=== PATIENT | male | born 1975 | race Two or more races ===

== ENCOUNTER 2025-04-19 06:20 | Inpatient (IN) | payer SELFPAY ==
[~2025-04-19] VITALS: Ht 190.5 cm; Wt 66.4 kg
[2025-04-19 07:56] LABS: Hematocrit 49.2 % (41.0-53.0); Hemoglobin 16.7 g/dL (13.5-17.5); Mean Corpuscular Hemoglobin 29.3 pg (28.0-32.0); Mean Corpuscular Volume 86.7 fL (80.0-100.0); Nucleated Red Blood Cells % 0.1 %
--- NOTE | 2025-04-19 07:56 | ED.PDOC ---
Musculoskeletal HPI Comments 49 y/o M, presents to the ED for CC of left-lower extremity pain. Patient states, he has been experiencing pain to his left-popliteal area x1week. Patient reports, he went on a strenuous hike on Wednesday (04/14/25) and symptoms were exacerbated after. Patient relays, that now he has tingling to his left lower extremity with slight discoloration and new onset shortness of breath. Patient denies chest pain, palpitations, swelling, injury, or trauma. No other symptoms or modifying factors are present at this time. Chief Complaint: Lower Extremity Time Seen by MD: 07:10 Reviewed Notes: Nurses Notes, Medications, Allergies Allergies: Coded Allergies: NO KNOWN ALLERGIES (Unverified , 04/19/25) Information Source: Patient Mode of Arrival: Wheelchair Location: Left Extremity Location: Knee Timing: Weeks Prehospital treatment: None Severity: Moderate Able to Move Extremity: No Bear Weight: Limited Pain: Moderate Mechanism: Spontaneous Circumstances: Spontaneous Onset of Symptoms: Spontaneous Symptoms: Swelling, Pain DVT Risk Factors: NONE Associated signs and symptoms: SOB, Leg pain Past Medical History PAST MEDICAL HISTORY: Denies Surgical History: Denies all surgeries Family History Family History: Unknown Social History Smoker: Non-Smoker Alcohol: Occasionally Drugs: Denies Drug Use Lives In: Home Constitutional: denies: chills, diaphoresis, fatigue, fever, malaise, sweats, weakness, others EENTM: denies: blurred vision, double vision, ear bleeding, ear discharge, ear drainage, ear pain, ear ringing, eye pain, eye redness, hearing loss, mouth pain, mouth swelling, nasal discharge, nose bleeding, nose congestion, nose pain, photophobia, tearing, throat pain, throat swelling, voice changes, others Respiratory: denies: cough, hemoptysis, orthopnea, SOB at rest, shortness of breath, SOB with excertion, stridor, wheezing, others Cardiovascular: denies: chest pain, dizzy spells, diaphoresis, Dyspnea on exertion, edema, irregular heart beat, left arm pain, lightheadedness, palpitations, PND, syncope, others Gastrointestinal: denies: abdomen distended, abdominal pain, blood streaked bowels, constipated, diarrhea, dysphagia, difficulty swallowing, hematemesis, melena, nausea, poor appetite, poor fluid intake, rectal bleeding, rectal pain, vomiting, others Genitourinary: denies: burning, dysuria, flank pain, frequency, hematuria, incontinence, penile discharge, penile sore, pain, testicle pain, testicle swelling, urgency, others Neurological: denies: dizziness, fainting, headache, left sided numbness, left sided weakness, numbness, paresthesia, pre-existing deficit, right sided numbness, right sided weakness, seizure, speech problems, tingling, tremors, weakness, others Musculoskeletal: reports: others (left popliteal pain); denies: back pain, gout, joint pain, joint swelling, muscle pain, muscle stiffness, neck pain Integumetry: denies: bruises, change in color, change in hair/nails, dryness, laceration, lesions, lumps, rash, wounds, others Allergic/Immunocompromised: denies: Difficulty Healing, Frequent Infections, Hives, Itching, others Hematologic/Lymphatic: denies: anemia, blood clots, easy bleeding, easy bruising, swollen glands, others Endocrine: denies: excessive hunger, excessive sweating, excessive thirst, excessive urination, flushing, intolerance to cold, intolerance to heat, unexplained weight gain, unexplained weight loss, others Psychiatric: denies: anxiety, bipolar disorder, depression, hopeless, panic disorder, schizophrenia, sleepless, suicidal, others All Other Systems: Reviewed and Negative Physical Exam General Appearance: No Apparent Distress, Normal HEENT: Normal ENT Inspection, Pharynx Normal Neck: Full Range of Motion, Non-Tender, Normal, Normal Inspection Respiratory: Chest Non-Tender, Lungs Clear, No Accessory Muscle Use, No Respiratory Distress, Normal Breath Sounds Cardiovascular: No Edema, No Murmur, No Gallop, Normal Peripheral Pulses, Regular Rate/Rhythm Breast Exam: Deferred Gastrointestinal: No Organomegaly, Non Tender, No Pulsatile Mass, Normal Bowel Sounds, Soft Genitalia: Deferred Pelvic: Deferred Rectal: Deferred Extremities: No calf tenderness, Normal capillary refill, Normal inspection, Normal range of motion, Non-tender, No pedal edema Musculoskeletal : Location: Left Extremity Location: Leg Apperance: Tenderness Neurologic: Alert, mathematical statistician II-XII nml as Tested, No Motor Deficits, Normal Affect, Normal Mood, No Sensory Deficits Cerebellar Function: Normal Reflexes: Normal Skin: Dry, Normal Color, Warm Lymphatic: No Adenopathy Was a procedure done? Was a procedure done?: No Differential Diagnosis EXT Differential Diagnosis: Deep Vein Thrombosis, Strain X-Ray, Labs, Meds, VS Vital Signs Date Time Temp Pulse Resp B/P (MAP) Pulse Ox O2 Delivery O2 Flow Rate FiO2 04/19/25 08:56 84 19 135/82 04/19/25 08:26 98.4 84 19 135/82 (99) 98 98.4 04/19/25 06:25 97.0 92 18 156/93 98 97.0 Lab Test 04/19/25 07:15 Range/Units White Blood Count 10.8 4.4-10.8 10^3/uL Red Blood Count 5.68 4.5-5.90 10^6/uL Hemoglobin 16.7 13.5-17.5 g/dL Hematocrit 49.2 41.0-53.0 % Mean Corpuscular Volume 86.7 80.0-100.0 fL Mean Corpuscular Hemoglobin 29.3 28.0-32.0 pg Mean Corpuscular Hemoglobin Concent 33.8 32.0-36.0 g/dL Red Cell Distribution Width 14.5 H 11.8-14.3 % Platelet Count 245 140-450 10^3/uL Mean Platelet Volume 7.6 6.9-10.8 fL Neutrophils (%) (Auto) 76.8 37.0-80.0 % Lymphocytes (%) (Auto) 14.2 10.0-50.0 % Monocytes (%) (Auto) 7.9 0.0-12.0 % Eosinophils (%) (Auto) 0.9 0.0-7.0 % Basophils (%) (Auto) 0.2 0.0-2.0 % Neutrophils # (Auto) 8.3 1.6-8.6 10 ^3/uL Lymphocytes # (Auto) 1.5 0.4-5.4 10 ^3/uL Monocytes # (Auto) 0.8 0-1.3 10 ^3/uL Eosinophils # (Auto) 0.1 0-0.8 10 ^3/uL Basophils # (Auto) 0 0-0.2 10 ^3/uL Nucleated Red Blood Cells 0.1 % Prothrombin Time 10.9 9.3-11.8 sec Prothrombin Time INR 1.03 0.9-1.15 Activated Partial Thromboplast Time 31.3 24.5-34.5 SEC D-Dimer, Quantitative 0.29 0.0-0.49 mg/L FEU Sodium Level 139 136-145 mmol/L Potassium Level 4.3 3.5-5.1 mmol/L Chloride Level 102 98-107 mmol/L Carbon Dioxide Level 26 20-31 mmol/L Anion Gap 11 5-15 Blood Urea Nitrogen 13 9-23 mg/dL Creatinine 1.12 0.700-1.30 mg/dL Glomerular Filtration Rate Calc 81 >90 mL/min BUN/Creatinine Ratio 11.6 10.0-20.0 Serum Glucose 105 74-106 mg/dL Calcium Level 9.3 8.7-10.4 mg/dL Troponin I High Sensitivity 6 </=54 ng/L Current Medications Medications (Trade) Dose Ordered Sig/Scotty Route Start Time Stop Time Status Last Admin Sodium Chloride 1,000 ml @ 1,000 mls/hr Q1H ONCE IV 04/19/25 07:30 04/19/25 08:29 DC 04/19/25 08:54 Morphine Sulfate 4 mg ONCE ONCE IV 04/19/25 07:30 04/19/25 07:39 DC 04/19/25 08:56 Ondansetron HCl (Zofran) 4 mg ONCE ONCE IV 04/19/25 07:30 04/19/25 07:39 DC 04/19/25 08:56 [place] [address] Ph: [phone] DIAGNOSTIC IMAGING Diagnostic Imaging Report : [id number] Signed PATIENT: CARRIE GROSS ACCT: [id number] UNIT: [id number] : 1975 LOC: ER ROOM / BED: / AGE / SEX: 49 / M ADM STATUS: REG ER SERVICE 0 ORDERING PHYSICIAN: HARRY TUBBS MD PROCEDURE(s): LKNE3 - L KNEE 3V XRAY REASON: left leg pain ORDER NUMBER(s): [id number], ACCESSION NUMBER(s): [id number] CLINICAL INDICATION: left leg pain TECHNIQUE: 3 radiographic views of the left knee were obtained. Comparison: None FINDINGS/IMPRESSION: There is no evidence of acute fracture or dislocation. Chondrocalcinosis. Mild tricompartmental knee joint osteoarthrosis. Small left knee joint effusion. There is no radiopaque foreign body. ATED BY: MAK AN MD DICTATED DATE/TIME: 04/19/25810 SIGNED BY: MAK AN MD SIGNED DATE/TIME: 04/19/25810 CC: [place] [id number] Ph: [phone] DIAGNOSTIC IMAGING Diagnostic Imaging Report : [id number] Signed PATIENT: CARRIE GROSS ACCT: [id number] UNIT: [id number] : 1975 LOC: ER ROOM / BED: / AGE / SEX: 49 / M ADM STATUS: REG ER SERVICE 0 ORDERING PHYSICIAN: HARRY TUBBS MD PROCEDURE(s): CXRP - CHEST PORTABLE REASON: left leg pain ORDER NUMBER(s): [id number], ACCESSION NUMBER(s): [id number] EXAM: XY CHEST PORTABLE Indication: pain Technique: Single frontal view of the chest was obtained Comparison: None FINDINGS: Lines and Tubes: None Lungs: No focal consolidation. Pleura: No effusion. No pneumothorax. Cardiomediastinal contours: Unremarkable Bones: No acute osseous abnormality. IMPRESSION: No acute cardiopulmonary disease. ATED BY: MAK AN MD DICTATED DATE/TIME: 04/19/25818 SIGNED BY: MAK AN MD SIGNED DATE/TIME: 04/19/25818 CC: Time of 1ST Reevaluation: 07:40 Reevaluation 1ST: Unchanged Patient Education/Counseling: Diagnosis, Treatment Family Education/Counseling: Diagnosis, Treatment Departure 1 Departure Time of Disposition: 10:03 (Patient with a acute DVT and intractable pain. We will admit patient for further workup and expert consultation) Impression: Primary Impression: Left leg DVT Qualified Codes: I82.452 - Acute embolism and thrombosis of left peroneal vein Disposition: ADMITTED INPATIENT Admit to: Med Surg Condition: Serious Critical Care Note Critical Care Time?: Yes Critical care comment: Concern for possible PE Authorized and Performed by: Harry Tubbs MD Total critical care time: Approximately 38 minutes Due to a high probability of clinically significant, life threatening deterioration, the patient required my highest level of preparedness to intervene emergently and I personally spent this critical care time directly and personally managing the patient. This critical care time included obtaining a history; examining the patient; pulse oximetry; ordering and review of studies; arranging urgent treatment with development of a management plan; evaluation of patient's response to treatment; frequent reassessment; and, discussions with other providers. This critical care time was performed to assess and manage the high probability of imminent, life-threatening deterioration that could result in multi-organ failure. It was exclusive of separately billable procedures and treating other patients and teaching time. Please see my other sections and the rest of the note for further information on patient assessment and treatment. Stability Stability form required: No Heart Score Heart Score: Heart Score Response (Comments) Value History N/A 0 EKG N/A 0 Age N/A 0 Risk Factors N/A 0 Troponin N/A 0 Total 0 I personally scribed for HARRY TUBBS MD ([email or web address]) on 04/19/25 at 07:55. Electronically submitted by Anjali Hong ([email or web address]). I personally scribed for HARRY TUBBS MD ([email or web address]) on 04/19/25 at 08:19. Electronically submitted by Anjali Hong ([email or web address]). I personally scribed for HARRY TUBBS MD ([email or web address]) on 04/19/25 at 08:26. Electronically submitted by Anjali Hong ([email or web address]). I personally scribed for HARRY TUBBS MD ([email or web address]) on 04/19/25 at 08:27. Electronically submitted by Anjali Hong ([email or web address]). I personally scribed for HARRY TUBBS MD ([email or web address]) on 04/19/25 at 08:29. Electronically submitted by Anjali Hong ([email or web address]). HARRY TUBBS MD Apr 19, 2025 07:55
[2025-04-19 07:57] LABS: Chloride 102 mmol/L (98-107); Potassium 4.3 mmol/L (3.5-5.1); Sodium 139 mmol/L (136-145)
[2025-04-19 07:58] LABS: Anion Gap 11 (5-15); Calcium 9.3 mg/dL (8.7-10.4); Carbon Dioxide 26 mmol/L (20-31)
[2025-04-19 08:03] LABS: BUN/Creatinine Ratio 11.6 (10.0-20.0); Blood Urea Nitrogen 13 mg/dL (9-23); Glucose 105 mg/dL (74-106)
--- NOTE | 2025-04-19 08:14 | DVH ---
CLINICAL INDICATION: left leg pain TECHNIQUE: 3 radiographic views of the left knee were obtained. Comparison: None FINDINGS/IMPRESSION: There is no evidence of acute fracture or dislocation. Chondrocalcinosis. Mild tricompartmental knee joint osteoarthrosis. Small left knee joint effusion. There is no radiopaque foreign body.
--- NOTE | 2025-04-19 08:21 | DVH ---
EXAM: XY CHEST PORTABLE Indication: pain Technique: Single frontal view of the chest was obtained Comparison: None FINDINGS: Lines and Tubes: None Lungs: No focal consolidation. Pleura: No effusion. No pneumothorax. Cardiomediastinal contours: Unremarkable Bones: No acute osseous abnormality. IMPRESSION: No acute cardiopulmonary disease.
--- NOTE | 2025-04-19 08:23 | DVH ---
Left lower extremity venous duplex Clinical History: Left leg pain Comparison: None Technique: Duplex Doppler evaluation of the deep venous system of the left lower extremity from the common femor al vein to the popliteal vein including color Doppler and spectral/pulsed waveform analysis was perfo rmed. Findings: The common femoral vein demonstrates appropriate compressibility and waveform variability. Intraluminal thrombus in the lesser saphenous vein and peroneal vein. The femoral vein demonstrates appropriate compressibility and waveform variability. Distal superficia l femoral vein appears small in size. The deep femoral vein demonstrates appropriate compressibility and waveform variability. The popliteal vein demonstrates appropriate compressibility and waveform variability. There is normal compressibility at the tibioperoneal trunk. Small knee joint effusion. Impression: No left femoropopliteal venous thrombosis. Intraluminal thrombus in the lesser saphenous vein and peroneal vein. Small knee joint effusion. This measures approximately 5.3 x 1.5 x 4.8 cm.
[2025-04-19] MEDS: SODIUM CHLORIDE 0.9% 1,000 ML IV ONE (08:54)
[2025-04-19] MEDS: MORPHINE SULFATE 4 MG/ML SYR/VIAL IV ONE (08:56)
[2025-04-19] MEDS: ONDANSETRON HCL 4 MG/2 ML VIAL IV ONE (08:56)
[2025-04-19] MEDS: IOHEXOL 350 MG/ML 100ML IJ ONE (09:01)
[2025-04-19 09:27] LABS: INR 1.03 (0.9-1.15); Partial Thromboplastin Time 31.3 SEC (24.5-34.5); Prothrombin Time 10.9 sec (9.3-11.8)
--- NOTE | 2025-04-19 09:38 | DVH ---
CTA Chest with intravenous contrast INDICATION: dvt with chest pain and sob COMPARISON: None TECHNIQUE: Multidetector spiral CTA of the chest was performed of the chest with intravenous contrast . PULMONARY ANGIOGRAPHY PROTOCOL was utilized using a bolus-tracking technique centered on the main p ulmonary artery. Axial, coronal and sagittal multiplanar and MIP reformats were performed. Radiation dose : 1. Chest: CTDI volume is 18.04 mGy. Dose-length product is 673.47 mGy*cm The dose indicators for CT are the volume computed tomography (CT) dose index (CTDIvol) and the dose length product (DLP), and are measured in units of mGy and mGy-cm, respectively. These indicators are not patient dose, but values generated from the CT scanner acquisition factors. The report includes radiation exposure data for exposures received during this examination. Findings: Pulmonary artery: No pulmonary embolism Lower neck: Normal thyroid. Lungs: No focal consolidation, pleural effusion or pneumothorax. Heart/Vascular Structures: Normal heart size. No pericardial effusion. Lymph Nodes: No adenopathy Pleura: No pleural effusion or significant pneumothorax. Musculoskeletal: No acute osseous abnormality. Soft tissues: Normal. Upper abdomen: Limited portions of the upper abdomen are unremarkable. IMPRESSION: No pulmonary embolism or other significant abnormality.
[2025-04-19 10:30] VITALS: PULSE 71; RESP 18; O2SAT 97
[2025-04-19] MEDS: HEPARIN SODIUM (PORCINE) 5000 UNITS/ML 1ML VIAL IV ONE (10:48)
[2025-04-19] MEDS: HEPARIN DRIP/D5W 100UNITS/ML 250 ML IV SCH ×2 (10:48→19:06)
[2025-04-19] MEDS ORDERED: ONDANSETRON HCL 4 MG/2 ML VIAL IV PRN (12:30)
[2025-04-19] MEDS ORDERED: NITROGLYCERIN 0.4 MG SL TAB SL PRN (12:30)
--- NOTE | 2025-04-19 12:42 | DVHHP2 ---
History of Present Illness Reason for Visit: Left leg pain History of Present Illness Rajni Addison is a 49-year-old male with no past medical history who presents to the ED with left lower extremity pain x1 week. Patient reports that on Wednesday he had gone on a strenuous hike about 3-1/2 miles uphill and his symptoms became worse. He also reports tingling to his left lower extremity and slight discoloration with shortness of breath when he first came in. Upon examination no discoloration noted. Patient reports that he is on TRT and goes to the clinic every 3 months for blood tests. Patient also has a left scar around his knee area states that he accidentally was lying on a knife. Patient also repor ts that he is active. 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 Patient's Becca is on the phone and updated with plan of care. Patient denies any recent trauma or injury, recent sick contacts, recent ingestion of spoiled food, recent travels, chest pain, fever, chills, lightheadedness, weakness, dizziness, abdominal pain nausea, vomiting, diarrhea, or urinary symptoms. Past Surgical History: None Family History: None Smoke: No ALCOHOL: none Drugs: None Lives: with Family Domestic Violence: Neg Review of Systems Musculoskeletal: leg pain Allergies: Coded Allergies: NO KNOWN ALLERGIES (Unverified , 04/19/25) Medications Current Medications Medications Dose Ordered Sig/Scotty Route Start Time Stop Time Status Last Admin Dose Admin Heparin Sodium/ Dextrose 250 ml @ 18 mls/hr [id number] IV 04/19/25 10:12 04/19/25 10:48 18 MLS/HR Exam Vital Signs Vital Signs Date Time Temp Pulse Resp B/P (MAP) Pulse Ox O2 Delivery O2 Flow Rate FiO2 04/19/25 10:30 71 18 97 Room Air* 0 21 04/19/25 10:30 140/87 (104) 04/19/25 08:26 98.4 98.4 General Appearance: Alert, Oriented X3, Cooperative, No acute distress HEENT: Atraumatic, PERRLA, EOMI, Mucous membr. moist/pink Respiratory: Clear to auscultation, Normal air movement Cardiovascular: Regular rate, Normal S1, Normal S2, No murmurs Abdominal: Normal bowel sounds, Soft Extremities: No clubbing, No cyanosis, No edema Skin: No significant lesion Neuro: Normal speech, Strength at 5/5 X4 ext, Normal tone, Sensation intact Psych/Mental Status: Mental status NL, Mood NL Labs/Xrays Labs Test 04/19/25 07:15 Range/Units White Blood Count 10.8 4.4-10.8 10^3/uL Red Blood Count 5.68 4.5-5.90 10^6/uL Hemoglobin 16.7 13.5-17.5 g/dL Hematocrit 49.2 41.0-53.0 % Mean Corpuscular Volume 86.7 80.0-100.0 fL Mean Corpuscular Hemoglobin 29.3 28.0-32.0 pg Mean Corpuscular Hemoglobin Concent 33.8 32.0-36.0 g/dL Red Cell Distribution Width 14.5 H 11.8-14.3 % Platelet Count 245 140-450 10^3/uL Mean Platelet Volume 7.6 6.9-10.8 fL Neutrophils (%) (Auto) 76.8 37.0-80.0 % Lymphocytes (%) (Auto) 14.2 10.0-50.0 % Monocytes (%) (Auto) 7.9 0.0-12.0 % Eosinophils (%) (Auto) 0.9 0.0-7.0 % Basophils (%) (Auto) 0.2 0.0-2.0 % Neutrophils # (Auto) 8.3 1.6-8.6 10 ^3/uL Lymphocytes # (Auto) 1.5 0.4-5.4 10 ^3/uL Monocytes # (Auto) 0.8 0-1.3 10 ^3/uL Eosinophils # (Auto) 0.1 0-0.8 10 ^3/uL Basophils # (Auto) 0 0-0.2 10 ^3/uL Nucleated Red Blood Cells 0.1 % Prothrombin Time 10.9 9.3-11.8 sec Prothrombin Time INR 1.03 0.9-1.15 Activated Partial Thromboplast Time 31.3 24.5-34.5 SEC D-Dimer, Quantitative 0.29 0.0-0.49 mg/L FEU Sodium Level 139 136-145 mmol/L Potassium Level 4.3 3.5-5.1 mmol/L Chloride Level 102 98-107 mmol/L Carbon Dioxide Level 26 20-31 mmol/L Anion Gap 11 5-15 Blood Urea Nitrogen 13 9-23 mg/dL Creatinine 1.12 0.700-1.30 mg/dL Glomerular Filtration Rate Calc 81 >90 mL/min BUN/Creatinine Ratio 11.6 10.0-20.0 Serum Glucose 105 74-106 mg/dL Calcium Level 9.3 8.7-10.4 mg/dL Troponin I High Sensitivity 6 </=54 ng/L CTA Chest with intravenous contrast INDICATION: dvt with chest pain and sob COMPARISON: None TECHNIQUE: Multidetector spiral CTA of the chest was performed of the chest with intravenous contrast. PULMONARY ANGIOGRAPHY PROTOCOL was utilized using a bolus- tracking technique centered on the main pulmonary artery. Axial, coronal and sagittal multiplanar and MIP reformats were performed. Radiation dose : 1. Chest: CTDI volume is 18.04 mGy. Dose-length product is 673.47 mGy*cm The dose indicators for CT are the volume computed tomography (CT) dose index (CTDIvol) and the dose length product (DLP), and are measured in units of mGy and mGy-cm, respectively. These indicators are not patient dose, but values generated from the CT scanner acquisition factors. The report includes radiation exposure data for exposures received during this examination. Findings: Pulmonary artery: No pulmonary embolism Lower neck: Normal thyroid. Lungs: No focal consolidation, pleural effusion or pneumothorax. Heart/Vascular Structures: Normal heart size. No pericardial effusion. Lymph Nodes: No adenopathy Pleura: No pleural effusion or significant pneumothorax. Musculoskeletal: No acute osseous abnormality. Soft tissues: Normal. Upper abdomen: Limited portions of the upper abdomen are unremarkable. IMPRESSION: No pulmonary embolism or other significant abnormality. CLINICAL INDICATION: left leg pain TECHNIQUE: 3 radiographic views of the left knee were obtained. Comparison: None FINDINGS/IMPRESSION: There is no evidence of acute fracture or dislocation. Chondrocalcinosis. Mild tricompartmental knee joint osteoarthrosis. Small left knee joint effusion. There is no radiopaque foreign body. Left lower extremity venous duplex Clinical History: Left leg pain Comparison: None Technique: Duplex Doppler evaluation of the deep venous system of the left lower extremity from the common femoral vein to the popliteal vein including color Doppler and spectral/pulsed waveform analysis was performed. Findings: The common femoral vein demonstrates appropriate compressibility and waveform variability. Intraluminal thrombus in the lesser saphenous vein and peroneal vein. The femoral vein demonstrates appropriate compressibility and waveform variability. Distal superficial femoral vein appears small in size. The deep femoral vein demonstrates appropriate compressibility and waveform variability. The popliteal vein demonstrates appropriate compressibility and waveform variability. There is normal compressibility at the tibioperoneal trunk. Small knee joint effusion. Impression: No left femoropopliteal venous thrombosis. Intraluminal thrombus in the lesser saphenous vein and peroneal vein. Small knee joint effusion. This measures approximately 5.3 x 1.5 x 4.8 cm. EXAM: XY CHEST PORTABLE Indication: pain Technique: Single frontal view of the chest was obtained Comparison: None FINDINGS: Lines and Tubes: None Lungs: No focal consolidation. Pleura: No effusion. No pneumothorax. Cardiomediastinal contours: Unremarkable Bones: No acute osseous abnormality. IMPRESSION: No acute cardiopulmonary disease. SEPSIS Sepsis Screen Date sepsis recognized/suspect: Apr 19, 2025 Time Sepsis recognized/suspect: 629 Recent Procedure: No On Antibiotic Therapy: No Respiratory Rate >20: No Heart Rate >90: Yes Temp<36 C (96.8 F) or >38.3 C: No SBP <90 or MAP <65 mmHG: No New Acute Mental Status Change: No Is the patient on CPAP, BIPAP,: No Physician Orders L Knee 3v Xray (04/19/25 07:21) Chest Portable (04/19/25 07:21) Lt Lower Dvt (04/19/25 07:21) Electrocardigram (04/19/25 07:21) Platelet Monitoring (04/19/25 08:47) Vte Protocol Initiated (04/19/25 08:47) Heparin Per Standardized Proce (04/19/25 08:47) Discontinue All Im Injections (04/19/25 08:47) Heparin Drip/D5w 100units/Ml (04/19/25 10:12) Ct Angio Chest Contrast (04/19/25 08:47) * Radiologist Consult (04/19/25 10:04) PTPTT (04/19/25 17:00) Vital Signs Date Time Temp Pulse Resp B/P (MAP) Pulse Ox O2 Delivery O2 Flow Rate FiO2 04/19/25 10:30 71 18 97 Room Air* 0 21 04/19/25 10:30 71 18 140/87 (104) 97 04/19/25 08:56 84 19 135/82 04/19/25 08:26 98.4 84 19 135/82 (99) 98 98.4 04/19/25 06:25 97.0 92 18 156/93 98 97.0 Laboratory Tests Test 04/19/25 07:15 White Blood Count 10.8 10^3/uL (4.4-10.8) Medications Medications Dose Ordered Sig/Scotty Route Start Time Stop Time Status Last Admin Dose Admin Heparin Sodium (Porcine) 5,000 units ONCE ONCE IV 04/19/25 09:00 04/19/25 10:11 DC 04/19/25 10:48 5,000 UNITS Heparin Sodium/ Dextrose 250 ml @ 18 mls/hr [id number] IV 04/19/25 10:12 04/19/25 10:48 18 MLS/HR Morphine Sulfate 4 mg ONCE ONCE IV 04/19/25 07:30 04/19/25 07:39 DC 04/19/25 08:56 4 MG Ondansetron HCl 4 mg ONCE ONCE IV 04/19/25 07:30 04/19/25 07:39 DC 04/19/25 08:56 4 MG Sodium Chloride 1,000 ml @ 1,000 mls/hr Q1H ONCE IV 04/19/25 07:30 04/19/25 08:29 DC 04/19/25 08:54 1,000 MLS/HR Assessment/Plan Assessment/Plan Assessment Intractable left lower extremity pain likely due to DVT, intraluminal thrombus in the lesser saphenous vein and peroneal vein Chondrocalcinosis Mild tricompartmental knee joint osteoarthrosis Small knee joint effusion Plan Admit to tele Heparin drip Antiemetics Pain management NS 1 L given ED CTA chest noted D-dimer PT/PTT EKG Ultrasound lower extremity Chest x-ray Left knee x-ray Diet No home medications reported DVT prophylaxis - patient on heparin drip PUD prophylaxis - PPIs Discussed plan of care with patient and [place] [id number] Preventive counseling healthy eating habits, physical activity, and regular checkups Plan discussed with: Patient Date of Service: Apr 19, 2025 Billing Provider: KRAIG VARGAS [employer] Common Visit Codes: 98842-ZNIOBTV INP/OBS CARE (HIGH) Secondary Visit Codes: 66867-[id number] COUNSELING IND KRAIG VARGAS [facility] Apr 19, 2025 12:42
[2025-04-19] MEDS ORDERED: MORPHINE SULFATE 4 MG/ML SYR/VIAL IV PRN ×2 (13:30)
[2025-04-19] MEDS: PANTOPRAZOLE 40 MG/10 ML VIAL INJ IV SCH (13:33)
[2025-04-19] MEDS: HYDROcodone-ACET 5/325MG TAB PO PRN (13:59)
[2025-04-19 17:14] VITALS: BP 137/76; PULSE 84; RESP 18; TEMP 98.1; O2SAT 96
[2025-04-19 17:38] LABS: INR 1.13 (0.9-1.15); Prothrombin Time 11.8 sec (9.3-11.8)
[2025-04-19 17:47] LABS: Partial Thromboplastin Time 105.5 SEC (24.5-34.5)
--- NOTE | 2025-04-19 18:16 | CONS ---
Pharmacy Clinical Information: HOLD HEPARIN DRIPS FOR 1HR. THEN DECREASE HEPARIN DRIP RATE TO 1500 UNITS/HR PER APTT OF 105.5 NEXT APTT DRAW SCHEDULED FOR 04/20 @0100PER RX PROTOCOL DANIA PAYTON CONFIRMED AND READ BACK Natalia Huynh PHARMACIST Apr 19, 2025 18:16
[2025-04-19 20:00] VITALS: PULSE 86; RESP 18
[2025-04-19 20:57] VITALS: BP 118/83; PULSE 80; RESP 16; TEMP 98.7; O2SAT 97
[2025-04-20] VITALS (8 sets, daily range): BP systolic 125–148; BP diastolic 75–91; PULSE 70–91; RESP 16–18; TEMP 98.3–98.6; O2SAT 94–100
[2025-04-20 01:26] LABS: INR 1.08 (0.9-1.15); Partial Thromboplastin Time 53.7 SEC (24.5-34.5); Prothrombin Time 11.4 sec (9.3-11.8)
[2025-04-20 07:37] LABS: Hematocrit 45.9 % (41.0-53.0); Hemoglobin 15.9 g/dL (13.5-17.5); Mean Corpuscular Hemoglobin 29.9 pg (28.0-32.0); Mean Corpuscular Volume 86.2 fL (80.0-100.0); Nucleated Red Blood Cells % 0.1 %
[2025-04-20 07:52] LABS: INR 1.12 (0.9-1.15); Partial Thromboplastin Time 58.7 SEC (24.5-34.5); Prothrombin Time 11.7 sec (9.3-11.8)
[2025-04-20 07:54] LABS: Alanine Aminotransferase 23 U/L (7-40); Albumin 4.3 g/dL (3.2-4.8); Alkaline Phosphatase 62 U/L (46-116); Anion Gap 10 (5-15); BUN/Creatinine Ratio 10.4 (10.0-20.0); Bilirubin, Total 1.9 mg/dL (0.2-1.0); Blood Urea Nitrogen 10 mg/dL (9-23); Calcium 9.3 mg/dL (8.7-10.4); Carbon Dioxide 26 mmol/L (20-31); Chloride 103 mmol/L (98-107); Glucose 107 mg/dL (74-106); Potassium 4.1 mmol/L (3.5-5.1); Sodium 139 mmol/L (136-145); Total Protein 7.4 g/dL (5.7-8.2)
[2025-04-20] MEDS: ACETAMINOPHEN 325 MG TAB PO PRN (08:24)
--- NOTE | 2025-04-20 12:15 | DVHPN2 ---
Reviewed: Care Plan, H&P, Labs, Medications, Previous Orders, Radiology Changes from previous H/P or p: No Changes Musculoskeletal: leg pain Objective Vitals Vital Signs Date Time Temp Pulse Resp B/P (MAP) Pulse Ox O2 Delivery O2 Flow Rate FiO2 04/20/25 09:30 97.8 04/20/25 08:00 88 04/20/25 08:00 18 95 Room Air* 0 21 04/20/25 05:00 140/91 (107) Intake/Output Intake and Output 04/20/25 07:00 Intake Total 800 ml Output Total 1210 ml Balance -410 ml Intake Oral 800 ml Output Urine Total 1210 ml Medications Current Medications Medications Dose Ordered Sig/Scotty Route Start Time Stop Time Status Last Admin Dose Admin Acetaminophen/ Hydrocodone Bitart 1 tab Q4HP PRN PO 04/19/25 12:30 04/20/25 10:46 1 TAB Ondansetron HCl 4 mg Q4HP PRN IV 04/19/25 12:30 Acetaminophen 650 mg Q6HP PRN PO 04/19/25 12:30 04/20/25 08:24 650 MG Morphine Sulfate 2 mg Q4HPRN PRN IV 04/19/25 13:30 Nitroglycerin 0.4 mg Q5MINP PRN SL 04/19/25 12:30 Morphine Sulfate 2 mg Q30M PRN IV 04/19/25 13:30 Pantoprazole Sodium 40 mg DAILY IV 04/19/25 12:45 04/20/25 10:45 40 MG Heparin Sodium/ Dextrose 250 ml @ 15 mls/hr [id number] IV 04/19/25 19:00 04/20/25 04:17 15 MLS/HR Laboratory Results Laboratory Tests 04/20/25 07:00 Chemistry Test 04/20/25 07:00 Albumin 4.3 g/dL (3.2-4.8) Calcium Level 9.3 mg/dL (8.7-10.4) Total Protein 7.4 g/dL (5.7-8.2) Coagulation Test 04/19/25 16:55 04/20/25 00:57 04/20/25 07:00 Prothrombin Time 11.8 sec (9.3-11.8) 11.4 sec (9.3-11.8) 11.7 sec (9.3-11.8) Prothrombin Time INR 1.13 (0.9-1.15) 1.08 (0.9-1.15) 1.12 (0.9-1.15) Activated Partial Thromboplast Time 105.5 SEC (24.5-34.5) *H 53.7 SEC (24.5-34.5) H 58.7 SEC (24.5-34.5) H LFT Test 04/20/25 07:00 Alanine Aminotransferase (ALT) 23 U/L (7-40) Alkaline Phosphatase 62 U/L (46-116) Aspartate Amino Transferase (AST) 20 U/L (13-40) Total Bilirubin 1.9 mg/dL (0.2-1.0) H Labs and/or images reviewed: Labs reviewed by me, Image(s) reviewed by me Assessment/Plan Assessment/Plan Intractable left lower extremity pain likely due to DVT, intraluminal thrombus in the lesser saphenous vein and peroneal vein heparin drip per protocol cardiology consult for Dr.M Kramer Chondrocalcinosis Mild tricompartmental knee joint osteoarthrosis Small knee joint effusion at bedside Plan discussed with: Patient Date of Service: Apr 20, 2025 Billing Provider: MARKO TRUJILLO MD Common Visit Codes: [id number] INP/OBS CARE(HIGH) MARKO TRUJILLO MD Apr 20, 2025 12:15
[2025-04-20 13:48] LABS: INR 1.11 (0.9-1.15); Partial Thromboplastin Time 64.2 SEC (24.5-34.5); Prothrombin Time 11.6 sec (9.3-11.8)
--- NOTE | 2025-04-20 15:36 | DVHINCON2 ---
Date Seen: Apr 20, 2025 Referring Physician MD Garcia Reason for Consultation Severe left leg pain with DVT History of Present Illness This is a 49-year-old male patient who presents to emergency room with chief complaint of left lower extremity pain. The patient was found to have a intral uminal thrombus in the lesser saphenous vein and peroneal vein on the left lower extremity. Cardiology has been consulted at this time for further evaluation. No twelve lead electrocardiogram found in patient's hard chart or in cardio server developer. The patient is in normal sinus rhythm on educational/development assistant without any events noted. The patient denies all cardiac symptoms including chest pain, shortness of breath, palpitations, or dizziness. Pulmonary embolism was ruled out by chest CT. Initial troponin level was negative. Significant past medical history includes mitral valve prolapse, and testosterone replacement therapy. Past Medical History Past medical history reviewed. No other significant than mentioned above. Past Surgical History Denies any previous surgery Family History: Patient reports no known family medical history. Family History Family history reviewed. Social History Denies the use of tobacco, alcohol or illicit drugs. Allergies: Coded Allergies: NO KNOWN ALLERGIES (Unverified , 04/19/25) Home Meds No Active Prescriptions or Reported Meds Home Meds Patient takes testosterone replacement therapy Current Medications Current Medications Medications (Trade) Dose Ordered Sig/Scotty Route PRN Reason Start Time Stop Time Status Last Admin Heparin Sodium/ Dextrose 250 ml @ 15 mls/hr [id number] IV 04/19/25 19:00 04/20/25 04:17 Review of Systems Constitutional: No symptom reported Ears, Nose, & Throat: No symptom reported Eyes: No symptom reported Neurological: No symptoms reported Pulmonary/Respiratory: No symptoms reported Cardiovascular: No symptom reported Gastrointestinal: No symptom reported Genitourinary: No symptom reported Musculoskeletal: Left lower extremity pain Skin: No symptom reported Psychiatric: No symptom reported Endocrine: No symptom reported Hematologic/Lymphatic: No symptom reported Vital Signs Vital Signs Date Time Temp Pulse Resp B/P (MAP) Pulse Ox O2 Delivery O2 Flow Rate FiO2 04/20/25 13:00 98.4 70 18 137/75 (95) 100 98.4 04/20/25 08:00 Room Air* 0 21 Physical Exam General Appearance: Cooperative. Well-developed. Well-nourished. No acute distress. Pulmonary/Respiratory: Clear, bilateral breaths sounds. Cardiovascular/Chest: Regular rate and rhythm. Peripheral Pulses: 2+ Radial (R). 2+ Radial (L). 2+ Pedal (R). 2+ Pedal (L) Abdominal Exam: Normal bowel sounds. Ankle Exam: Negative ankle edema Lower extremities: Negative lower extremity edema Neuro/Mental Status: A/OX4, coherent. Thoughts/Psych: Normal thought pattern. Appropriate mood and affect. Good judgment and insight. Appearance: No acute distress. Skin Exam: Normal inspection. Normal color. Warm and dry. Labs/Diagnostic Data Labs Test 04/20/25 13:15 04/20/25 07:00 04/19/25 13:03 04/19/25 07:15 Range/Units Prothrombin Time 11.6 9.3-11.8 sec Prothrombin Time INR 1.11 0.9-1.15 Activated Partial Thromboplast Time 64.2 H 24.5-34.5 SEC White Blood Count 9.2 4.4-10.8 10^3/uL Red Blood Count 5.33 4.5-5.90 10^6/uL Hemoglobin 15.9 13.5-17.5 g/dL Hematocrit 45.9 41.0-53.0 % Mean Corpuscular Volume 86.2 80.0-100.0 fL Mean Corpuscular Hemoglobin 29.9 28.0-32.0 pg Mean Corpuscular Hemoglobin Concent 34.7 32.0-36.0 g/dL Red Cell Distribution Width 13.9 11.8-14.3 % Platelet Count 200 140-450 10^3/uL Mean Platelet Volume 7.5 6.9-10.8 fL Neutrophils (%) (Auto) 74.8 37.0-80.0 % Lymphocytes (%) (Auto) 15.4 10.0-50.0 % Monocytes (%) (Auto) 8.7 0.0-12.0 % Eosinophils (%) (Auto) 0.7 0.0-7.0 % Basophils (%) (Auto) 0.4 0.0-2.0 % Neutrophils # (Auto) 6.9 1.6-8.6 10 ^3/uL Lymphocytes # (Auto) 1.4 0.4-5.4 10 ^3/uL Monocytes # (Auto) 0.8 0-1.3 10 ^3/uL Eosinophils # (Auto) 0.1 0-0.8 10 ^3/uL Basophils # (Auto) 0 0-0.2 10 ^3/uL Nucleated Red Blood Cells 0.1 % Sodium Level 139 136-145 mmol/L Potassium Level 4.1 3.5-5.1 mmol/L Chloride Level 103 98-107 mmol/L Carbon Dioxide Level 26 20-31 mmol/L Anion Gap 10 5-15 Blood Urea Nitrogen 10 9-23 mg/dL Creatinine 0.96 0.700-1.30 mg/dL Glomerular Filtration Rate Calc 97 >90 mL/min BUN/Creatinine Ratio 10.4 10.0-20.0 Serum Glucose 107 H 74-106 mg/dL Calcium Level 9.3 8.7-10.4 mg/dL Total Bilirubin 1.9 H 0.2-1.0 mg/dL Aspartate Amino Transferase (AST) 20 13-40 U/L Alanine Aminotransferase (ALT) 23 7-40 U/L Alkaline Phosphatase 62 46-116 U/L Total Protein 7.4 5.7-8.2 g/dL Albumin 4.3 3.2-4.8 g/dL Creatine Kinase 151 46-171 U/L D-Dimer, Quantitative 0.29 0.0-0.49 mg/L FEU Troponin I High Sensitivity 6 </=54 ng/L Assessment Intraluminal thrombus in lesser saphenous and peroneal veins Rule out structural heart disease History of mitral valve prolapse Chondrocalcinosis History of testosterone replacement therapy Plan/Recommendation We will continue following plan/recommendations (Dr. Kramer): Case discussed with . Lower extremity venous study reviewed by MD. Given location, there is no indication for mechanical thrombectomy at this time. The patient may continue on heparin drip while inpatient. The patient will need to be switch to DOAC therapy with Eliquis prior to discharge. Pending inpatient transthoracic echocardiogram to evaluate cardiac function. Thank you for allowing us to care for this patient. Please call with any questions or concerns. Critical care time spent: 44 minutes This medical document was created using an electronic medical record system with voice recognition software and computerized dictation system. Although this document has been carefully reviewed, there might still be some phonetic and typographical errors. Occasional wrong-word or ``sound-alike substitutions may have occurred due to the inherent limitations of voice recognition software. These areas are purely typographical due to imperfections of the software programs and do not reflect any compromise in the patient's medical care. Please read the chart carefully and recognize, using context, where these substitutions have occurred. Plan discussed with: Patient NYHA Physical activity limitations: NA Date of Service: Apr 20, 2025 Billing Provider: TALA ISRAEL Cardiology Common Codes: [id number] INP/OBS CARE (High) Cardiology Consultation Codes: [id number] CONSULT <45MIN TALA ISRAEL Apr 20, 2025 15:36
--- NOTE | 2025-04-20 20:30 | DVHINCON2 ---
Date Seen: Apr 20, 2025 Referring Physician MD Garcia Reason for Consultation Severe left leg pain with DVT History of Present Illness This is a 49-year-old male with a PMH of past medical history includes mitral valve prolapse, and testosterone replacement therapy who presents to emergency room with a complaint of left lower extremity pain. The patient was found to have a intraluminal thrombus in the lesser saphenous vein in peroneal vein on the left lower extremity. Cardiology has been consulted at this time for further evaluation. No twelve lead electrocardiogram found in patient's hard chart or in cardio traffic observer. he patient is in normal sinus rhythm on color matcher without any events noted. The patient denies all cardiac symptoms including chest pain, shortness of breath, palpitations, or dizziness. Initial troponin level was negative. Chest x-ray showed NAD. Past Medical History Past medical history reviewed. No other significant than mentioned above. Past Surgical History Denies any previous surgery Family History: Patient reports no known family medical history. Allergies: Coded Allergies: NO KNOWN ALLERGIES (Unverified , 04/19/25) Home Meds No Active Prescriptions or Reported Meds Current Medications Current Medications Medications (Trade) Dose Ordered Sig/Scotty Route PRN Reason Start Time Stop Time Status Last Admin Heparin Sodium/ Dextrose 250 ml @ 15 mls/hr [id number] IV 04/19/25 19:00 04/20/25 04:17 Review of Systems Constitutional: No symptom reported Ears, Nose, & Throat: No symptom reported Eyes: No symptom reported Neurological: No symptoms reported Pulmonary/Respiratory: No symptoms reported Cardiovascular: No symptom reported Gastrointestinal: No symptom reported Genitourinary: No symptom reported Musculoskeletal: Left lower extremity pain Skin: No symptom reported Psychiatric: No symptom reported Endocrine: No symptom reported Hematologic/Lymphatic: No symptom reported Vital Signs Vital Signs Date Time Temp Pulse Resp B/P (MAP) Pulse Ox O2 Delivery O2 Flow Rate FiO2 04/20/25 13:00 98.4 70 18 137/75 (95) 100 98.4 04/20/25 08:00 Room Air* 0 21 Physical Exam GENERAL: Alert and oriented x 3. No acute distress. EYES: PERRL, EOMI. Anicteric. HENT: Moist mucous membranes. LUNGS: Clear to auscultation bilaterally. CARDIOVASCULAR: Regular rate and rhythm. ABDOMEN: Soft, nontender and nondistended. EXTREMITIES: No edema. NEUROLOGIC: No focal neurological deficits. SKIN: Warm, dry. Labs/Diagnostic Data Labs Test 04/20/25 13:15 04/20/25 07:00 04/19/25 13:03 04/19/25 07:15 Range/Units Prothrombin Time 11.6 9.3-11.8 sec Prothrombin Time INR 1.11 0.9-1.15 Activated Partial Thromboplast Time 64.2 H 24.5-34.5 SEC White Blood Count 9.2 4.4-10.8 10^3/uL Red Blood Count 5.33 4.5-5.90 10^6/uL Hemoglobin 15.9 13.5-17.5 g/dL Hematocrit 45.9 41.0-53.0 % Mean Corpuscular Volume 86.2 80.0-100.0 fL Mean Corpuscular Hemoglobin 29.9 28.0-32.0 pg Mean Corpuscular Hemoglobin Concent 34.7 32.0-36.0 g/dL Red Cell Distribution Width 13.9 11.8-14.3 % Platelet Count 200 140-450 10^3/uL Mean Platelet Volume 7.5 6.9-10.8 fL Neutrophils (%) (Auto) 74.8 37.0-80.0 % Lymphocytes (%) (Auto) 15.4 10.0-50.0 % Monocytes (%) (Auto) 8.7 0.0-12.0 % Eosinophils (%) (Auto) 0.7 0.0-7.0 % Basophils (%) (Auto) 0.4 0.0-2.0 % Neutrophils # (Auto) 6.9 1.6-8.6 10 ^3/uL Lymphocytes # (Auto) 1.4 0.4-5.4 10 ^3/uL Monocytes # (Auto) 0.8 0-1.3 10 ^3/uL Eosinophils # (Auto) 0.1 0-0.8 10 ^3/uL Basophils # (Auto) 0 0-0.2 10 ^3/uL Nucleated Red Blood Cells 0.1 % Sodium Level 139 136-145 mmol/L Potassium Level 4.1 3.5-5.1 mmol/L Chloride Level 103 98-107 mmol/L Carbon Dioxide Level 26 20-31 mmol/L Anion Gap 10 5-15 Blood Urea Nitrogen 10 9-23 mg/dL Creatinine 0.96 0.700-1.30 mg/dL Glomerular Filtration Rate Calc 97 >90 mL/min BUN/Creatinine Ratio 10.4 10.0-20.0 Serum Glucose 107 H 74-106 mg/dL Calcium Level 9.3 8.7-10.4 mg/dL Total Bilirubin 1.9 H 0.2-1.0 mg/dL Aspartate Amino Transferase (AST) 20 13-40 U/L Alanine Aminotransferase (ALT) 23 7-40 U/L Alkaline Phosphatase 62 46-116 U/L Total Protein 7.4 5.7-8.2 g/dL Albumin 4.3 3.2-4.8 g/dL Creatine Kinase 151 46-171 U/L D-Dimer, Quantitative 0.29 0.0-0.49 mg/L FEU Troponin I High Sensitivity 6 </=54 ng/L Assessment Intraluminal thrombus in lesser saphenous and peroneal veins. Rule out structural heart disease. History of mitral valve prolapse. Chondrocalcinosis. History of testosterone replacement therapy. Plan/Recommendation I agree with your ongoing assessment and care of plan. Patient has been seen by Fide Golden NP on my behalf, her and I discussed the plan with the patient. Lower extremity venous study reviewed by MD. Given location, there is no indication for mechanical thrombectomy at this time. The patient may continue on heparin drip while inpatient. The patient will need to be switch to DOAC therapy with Eliquis prior to discharge. Pending inpatient transthoracic echocardiogram to evaluate cardiac function. Additional plan as per the hospital course. Plan discussed with: Patient NYHA Physical activity limitations: NA Date of Service: Apr 20, 2025 Billing Provider: DANI BSOTON MD Cardiology Common Codes: [id number] INP/OBS CARE (High) Cardiology Consultation Codes: [id number] CONSULT <45MIN DANI BOSTON MD Apr 20, 2025 15:57
[2025-04-21] VITALS (8 sets, daily range): BP systolic 124–144; BP diastolic 74–90; PULSE 70–84; RESP 16–20; TEMP 98–98.8; O2SAT 93–98
[2025-04-21 06:41] LABS: Hematocrit 45.6 % (41.0-53.0); Hemoglobin 15.8 g/dL (13.5-17.5); Mean Corpuscular Hemoglobin 30.1 pg (28.0-32.0); Mean Corpuscular Volume 86.9 fL (80.0-100.0); Nucleated Red Blood Cells % 0.1 %
[2025-04-21 06:56] LABS: INR 1.08 (0.9-1.15); Partial Thromboplastin Time 55.4 SEC (24.5-34.5); Prothrombin Time 11.4 sec (9.3-11.8)
--- NOTE | 2025-04-21 11:08 | CONS ---
Pharmacy Clinical Information: HEPARIN PER DVT PROTOCOL UPDATE: APTT result of 55.4 received from draw on 04/21 @4610. Continue current rate of 1500 units per hour (15mL/hr) per PRx protocol. PTT scheduled for 04/22 @0400. Orders read back and confirmed with DANIA Navas @3636. KATHERYN ORELLANA Apr 21, 2025 11:08
--- NOTE | 2025-04-21 12:43 | DVHPN2 ---
Reviewed: Care Plan, H&P, Labs, Medications, Previous Orders, Radiology Changes from previous H/P or p: No Changes Musculoskeletal: leg pain Objective Vitals Vital Signs Date Time Temp Pulse Resp B/P (MAP) Pulse Ox O2 Delivery O2 Flow Rate FiO2 04/21/25 08:42 98.4 80 20 142/90 (107) 95 98.4 04/20/25 20:00 Room Air* 0 21 Intake/Output Intake and Output 04/21/25 07:00 Intake Total 3795 ml Output Total 2340 ml Balance 1455 ml Intake Oral 3795 ml Output Urine Total 2340 ml # Voids 13 # Bowel Movements 3 Medications Current Medications Medications Dose Ordered Sig/Scotty Route Start Time Stop Time Status Last Admin Dose Admin Acetaminophen/ Hydrocodone Bitart 1 tab Q4HP PRN PO 04/19/25 12:30 04/21/25 06:42 1 TAB Ondansetron HCl 4 mg Q4HP PRN IV 04/19/25 12:30 Acetaminophen 650 mg Q6HP PRN PO 04/19/25 12:30 04/20/25 08:24 650 MG Morphine Sulfate 2 mg Q4HPRN PRN IV 04/19/25 13:30 Nitroglycerin 0.4 mg Q5MINP PRN SL 04/19/25 12:30 Morphine Sulfate 2 mg Q30M PRN IV 04/19/25 13:30 Pantoprazole Sodium 40 mg DAILY IV 04/19/25 12:45 04/20/25 10:45 40 MG Heparin Sodium/ Dextrose 250 ml @ 15 mls/hr [id number] IV 04/19/25 19:00 04/20/25 22:08 15 MLS/HR Laboratory Results Laboratory Tests 04/20/25 07:00 04/21/25 05:25 Coagulation Test 04/20/25 13:15 04/21/25 05:25 Prothrombin Time 11.6 sec (9.3-11.8) 11.4 sec (9.3-11.8) Prothrombin Time INR 1.11 (0.9-1.15) 1.08 (0.9-1.15) Activated Partial Thromboplast Time 64.2 SEC (24.5-34.5) H 55.4 SEC (24.5-34.5) H Labs and/or images reviewed: Labs reviewed by me, Image(s) reviewed by me Assessment/Plan Assessment/Plan Intraluminal thrombus in the lesser saphenous vein and peroneal vein heparin drip per protocol cardiology consult for Dr.M Kramer appreciated no indication for mechanical thrombectomy Chondrocalcinosis Mild tricompartmental knee joint osteoarthrosis History of mitral valve prolapse History of testosterone replacement therapy Small knee joint effusion at bedside PE ruled out Echocardiogram result pending Plan discussed with: Patient Date of Service: Apr 21, 2025 Billing Provider: MARKO TRUJILLO MD Common Visit Codes: [id number] INP/OBS CARE(HIGH) MARKO TRUJILLO MD Apr 21, 2025 12:43
[2025-04-22] VITALS (8 sets, daily range): BP systolic 110–142; BP diastolic 75–94; PULSE 56–91; RESP 18–20; TEMP 97.7–98.6; O2SAT 71–97
--- NOTE | 2025-04-22 01:21 | DVHPN2 ---
Progress Note - Dictate Date Seen: Apr 21, 2025 Medical Necessity Reason Pt with a Central, PICC or Fol: No Subjective Patient was seen and evaluated in follow up. Patient complains of BLE pain. Patient is on Heparin drip. CBC is WNL. Telemetry reviewed. vital signs Vital Sign Date Time Temp Pulse Resp B/P (MAP) Pulse Ox O2 Delivery O2 Flow Rate FiO2 04/21/25 17:01 98.3 75 20 131/82 (98) 96 98.3 04/21/25 07:30 Room Air* 0 21 Total Intake and Output 04/20/25 04/20/25 04/21/25 15:00 23:00 07:00 Intake Total 2260 ml 1535 ml Output Total 1600 ml 740 ml Balance 660 ml 795 ml medications Current Medications Medications Dose Ordered Sig/Scotty Route Start Time Stop Time Status Last Admin Dose Admin Acetaminophen/ Hydrocodone Bitart 1 tab Q4HP PRN PO 04/19/25 12:30 04/21/25 20:18 1 TAB Ondansetron HCl 4 mg Q4HP PRN IV 04/19/25 12:30 Acetaminophen 650 mg Q6HP PRN PO 04/19/25 12:30 04/20/25 08:24 650 MG Morphine Sulfate 2 mg Q4HPRN PRN IV 04/19/25 13:30 Nitroglycerin 0.4 mg Q5MINP PRN SL 04/19/25 12:30 Morphine Sulfate 2 mg Q30M PRN IV 04/19/25 13:30 Pantoprazole Sodium 40 mg DAILY IV 04/19/25 12:45 04/20/25 10:45 40 MG Heparin Sodium/ Dextrose 250 ml @ 15 mls/hr [id number] IV 04/19/25 19:00 04/21/25 16:19 15 MLS/HR objective GENERAL: Alert and oriented x 3. No acute distress. EYES: PERRL, EOMI. Anicteric. HENT: Moist mucous membranes. LUNGS: Clear to auscultation bilaterally. CARDIOVASCULAR: Regular rate and rhythm. ABDOMEN: Soft, nontender and nondistended. EXTREMITIES: No edema. NEUROLOGIC: No focal neurological deficits. SKIN: Warm, dry. laboratory and microbiology Laboratory Tests 04/21/25 05:25 04/20/25 07:00 Test 04/20/25 07:00 Range/Units Serum Glucose 107 H 74-106 mg/dL Problem List Intraluminal thrombus in lesser saphenous and peroneal veins. Rule out structural heart disease. History of mitral valve prolapse. Chondrocalcinosis. History of testosterone replacement therapy. Assessment/Plan Continued all current supportive medical care. Morphine and [place] for pain management. Heparin drip per protocol. Nitro SL. GI prophylactics. Additional plan as per the hospital course. Plan discussed with: Patient DANI BOSTON MD Apr 21, 2025 21:05
[2025-04-22 06:29] LABS: Hematocrit 46.3 % (41.0-53.0); Hemoglobin 16.0 g/dL (13.5-17.5); Mean Corpuscular Hemoglobin 30.1 pg (28.0-32.0); Mean Corpuscular Volume 87.1 fL (80.0-100.0); Nucleated Red Blood Cells % 0.1 %
[2025-04-22 06:44] LABS: INR 1.05 (0.9-1.15); Partial Thromboplastin Time 47.6 SEC (24.5-34.5); Prothrombin Time 11.1 sec (9.3-11.8)
--- NOTE | 2025-04-22 08:25 | CONS ---
Pharmacy Clinical Information: HEPARIN DRIP RATE INCREASED TO 1700 UNITS/HR PER APTT = 47.6 (SUBTHERAPEUTIC) NEXT APTT DRAW SCHEDULED FOR 1430 PER RX PROTOCOL CONFIRMED WITH LISA ROJAS PHARMACIST Apr 22, 2025 08:25
[2025-04-22] MEDS: HEPARIN DRIP/D5W 100UNITS/ML 250 ML IV SCH ×2 (09:04→15:37)
--- NOTE | 2025-04-22 12:47 | DVHPN2 ---
Reviewed: Care Plan, H&P, Labs, Medications, Previous Orders, Radiology Changes from previous H/P or p: No Changes Musculoskeletal: leg pain Objective Vitals Vital Signs Date Time Temp Pulse Resp B/P (MAP) Pulse Ox O2 Delivery O2 Flow Rate FiO2 04/22/25 12:35 98.5 75 20 142/83 (102) 95 98.5 04/22/25 07:30 Room Air* 0 21 Intake/Output Intake and Output 04/22/25 07:00 Intake Total 2450 ml Output Total 650 ml Balance 1800 ml Intake Oral 2200 ml IV Total 250 ml Output Urine Total 650 ml # Voids 5 # Bowel Movements 1 Medications Current Medications Medications Dose Ordered Sig/Scotty Route Start Time Stop Time Status Last Admin Dose Admin Acetaminophen/ Hydrocodone Bitart 1 tab Q4HP PRN PO 04/19/25 12:30 04/22/25 01:08 1 TAB Ondansetron HCl 4 mg Q4HP PRN IV 04/19/25 12:30 Acetaminophen 650 mg Q6HP PRN PO 04/19/25 12:30 04/20/25 08:24 650 MG Morphine Sulfate 2 mg Q4HPRN PRN IV 04/19/25 13:30 Nitroglycerin 0.4 mg Q5MINP PRN SL 04/19/25 12:30 Morphine Sulfate 2 mg Q30M PRN IV 04/19/25 13:30 Pantoprazole Sodium 40 mg DAILY IV 04/19/25 12:45 04/20/25 10:45 40 MG Heparin Sodium/ Dextrose 250 ml @ 17 mls/hr [id number] IV 04/22/25 08:30 04/22/25 09:04 17 MLS/HR Laboratory Results Laboratory Tests 04/20/25 07:00 04/22/25 05:39 Coagulation Test 04/22/25 05:39 Prothrombin Time 11.1 sec (9.3-11.8) Prothrombin Time INR 1.05 (0.9-1.15) Activated Partial Thromboplast Time 47.6 SEC (24.5-34.5) H Labs and/or images reviewed: Labs reviewed by me, Image(s) reviewed by me Assessment/Plan Assessment/Plan Intraluminal thrombus in the lesser saphenous vein and peroneal vein heparin drip per protocol cardiology consult for Dr.M Kramer appreciated no indication for mechanical thrombectomy Chondrocalcinosis Mild tricompartmental knee joint osteoarthrosis History of mitral valve prolapse History of testosterone replacement therapy Small knee joint effusion at bedside PE ruled out Echocardiogram result pending Plan discussed with: Patient My Orders Orders - MARKO TRUJILLO MD Procedure Category Date Status Time * Manager Lvn CONS 04/21/25 Transmitted Consult Date of Service: Apr 22, 2025 Billing Provider: MARKO TRUJILLO MD Common Visit Codes: [id number] INP/OBS CARE(HIGH) MARKO TRUJILLO MD Apr 22, 2025 12:46
[2025-04-22 15:18] LABS: INR 1.06 (0.9-1.15); Partial Thromboplastin Time 47.4 SEC (24.5-34.5); Prothrombin Time 11.2 sec (9.3-11.8)
--- NOTE | 2025-04-22 15:33 | CONS ---
Pharmacy Clinical Information: HEPARIN DRIP RATE INCREASED TO 1900 UNITS/HR PER APTT OF 47.4 (SUBTHERAPEUTIC) CONFIRMED WITH DANIA MALHOTRA NEXT APTT DRAW SCHEDULED FOR 0 PER RX PROTOCOL LISA MURDOCK PHARMACIST Apr 22, 2025 15:33
--- NOTE | 2025-04-22 19:48 | DVHSR ---
APPROVED REPORT EXAM: Two-dimensional and M-mode echocardiogram with Doppler and color Doppler. Blood Pressure: 144/ mmHg INDICATION EVALUATE CARDIAC FUNCTION RISK FACTORS Height: 6'3, Weight: 146 DIMENSIONS LVDd4.7 (3.8-5.7cm)LA (2D)3.6 (1.9-4.0cm)Aortic Root4.0 (2.0-3.7cm) LVDs3.2 (2.5-4.0cm)LA (MM) (1.9-4.0cm)Aortic Cusp Exc2.4 (1.5-2.0cm) EF (%) 60.0 (55-70%)Rt. Atrium4.0 (1.9-4.0cm)Asc. Aorta cm IVSd1.1 (0.7-1.1cm)RV (D) (1.8-2.4cm) PWd1.2 (0.7-1.1cm) Mitral Valve MitralMitral Stenosis E wave0.57m/sMV Mean GR.mmHg A wave0.53m/sMV Peak GR.72mmHg E/A ratio1.12D MVAcm2 DECEL [id number] 1/2 [place] Aortic Valve Aortic ValveAortic Stenosis V11.19m/Abby Mean GR.4mmHg V21.33m/Abby Peak GR.7mmHg LVOT Diameter2.2 (1.8-2.4cm)Doppler AVA3.40cm2 Pulmonic Valve V20.88m/s Tricuspid Valve TR Velocity2.51m/s [id number] Conclusion NORMAL LV EF IS 70% MILD MVP NORMAL RV SIZE AND PRESSURE NORMAL VALVES NO EFFUSION
--- NOTE | 2025-04-22 19:58 | DVHPN2 ---
Progress Note - Dictate Date Seen: Apr 22, 2025 Medical Necessity Reason Pt with a Central, PICC or Fol: No Subjective Patient was seen and evaluated in follow up. Patient is complaining of BLE pain. Patient remains on Heparin drip. Telemetry reviewed. vital signs Vital Sign Date Time Temp Pulse Resp B/P (MAP) Pulse Ox O2 Delivery O2 Flow Rate FiO2 04/22/25 12:35 98.5 75 20 142/83 (102) 95 98.5 04/22/25 07:30 Room Air* 0 21 Total Intake and Output 04/21/25 04/21/25 04/22/25 15:00 23:00 07:00 Intake Total 1650 ml 800 ml Output Total 650 ml Balance 1000 ml 800 ml medications Current Medications Medications Dose Ordered Sig/Scotty Route Start Time Stop Time Status Last Admin Dose Admin Acetaminophen/ Hydrocodone Bitart 1 tab Q4HP PRN PO 04/19/25 12:30 04/22/25 01:08 1 TAB Ondansetron HCl 4 mg Q4HP PRN IV 04/19/25 12:30 Acetaminophen 650 mg Q6HP PRN PO 04/19/25 12:30 04/20/25 08:24 650 MG Morphine Sulfate 2 mg Q4HPRN PRN IV 04/19/25 13:30 Nitroglycerin 0.4 mg Q5MINP PRN SL 04/19/25 12:30 Morphine Sulfate 2 mg Q30M PRN IV 04/19/25 13:30 Pantoprazole Sodium 40 mg DAILY IV 04/19/25 12:45 04/20/25 10:45 40 MG Heparin Sodium/ Dextrose 250 ml @ 17 mls/hr [id number] IV 04/22/25 08:30 04/22/25 09:04 17 MLS/HR objective GENERAL: Alert and oriented x 3. No acute distress. EYES: PERRL, EOMI. Anicteric. HENT: Moist mucous membranes. LUNGS: Clear to auscultation bilaterally. CARDIOVASCULAR: Regular rate and rhythm. ABDOMEN: Soft, nontender and nondistended. EXTREMITIES: No edema. NEUROLOGIC: No focal neurological deficits. SKIN: Warm, dry. laboratory and microbiology Laboratory Tests 04/22/25 05:39 04/20/25 07:00 Test 04/20/25 07:00 Range/Units Serum Glucose 107 H 74-106 mg/dL Problem List Intraluminal thrombus in lesser saphenous and peroneal veins. Rule out structural heart disease. History of mitral valve prolapse. Chondrocalcinosis. History of testosterone replacement therapy. Assessment/Plan Continued all current supportive medical care. Morphine and [place] for pain management. Heparin drip per protocol. Nitro SL. Additional plan as per the hospital course. Plan discussed with: Patient DANI BOSTON MD Apr 22, 2025 14:23
[2025-04-22 22:29] LABS: INR 1.05 (0.9-1.15); Partial Thromboplastin Time 57.4 SEC (24.5-34.5); Prothrombin Time 11.1 sec (9.3-11.8)
[2025-04-23] VITALS (8 sets, daily range): BP systolic 122–144; BP diastolic 69–93; PULSE 56–79; RESP 16–20; TEMP 97.7–98.8; O2SAT 92–100
[2025-04-23 06:47] LABS: Hematocrit 47.7 % (41.0-53.0); Hemoglobin 16.3 g/dL (13.5-17.5); Mean Corpuscular Hemoglobin 29.6 pg (28.0-32.0); Mean Corpuscular Volume 86.9 fL (80.0-100.0); Nucleated Red Blood Cells % 0.1 %
[2025-04-23 07:02] LABS: INR 1.07 (0.9-1.15); Partial Thromboplastin Time 47.1 SEC (24.5-34.5); Prothrombin Time 11.3 sec (9.3-11.8)
--- NOTE | 2025-04-23 08:41 | CONS ---
Pharmacy Clinical Information: HEPARIN DRIP, DVT PROTOCOL @0514 APTT = 47.1 - NO BOLUS, INCREASE BY 200 UNITS/HR NEXT APTT DRAW WILL BE @1500 PER RX PROTOCOL CONFIRMED AND READ BACK WITH VIRY TERAN [facility] RESIDENT Apr 23, 2025 08:41
[2025-04-23] MEDS: HEPARIN DRIP/D5W 100UNITS/ML 250 ML IV SCH ×2 (08:45→16:00)
--- NOTE | 2025-04-23 13:46 | DVHPN2 ---
Reviewed: Care Plan, H&P, Labs, Medications, Previous Orders, Radiology Changes from previous H/P or p: No Changes Musculoskeletal: leg pain Objective Vitals Vital Signs Date Time Temp Pulse Resp B/P (MAP) Pulse Ox O2 Delivery O2 Flow Rate FiO2 04/23/25 09:00 98.2 73 16 144/93 (110) 100 98.2 04/23/25 08:00 Room Air* 0 21 Intake/Output Intake and Output 04/23/25 07:00 Intake Total 1890 ml Output Total 850 ml Balance 1040 ml Intake Oral 1640 ml IV Total 250 ml Output Urine Total 850 ml # Voids 3 # Bowel Movements 1 Medications Current Medications Medications Dose Ordered Sig/Scotty Route Start Time Stop Time Status Last Admin Dose Admin Acetaminophen/ Hydrocodone Bitart 1 tab Q4HP PRN PO 04/19/25 12:30 04/22/25 21:57 1 TAB Ondansetron HCl 4 mg Q4HP PRN IV 04/19/25 12:30 Acetaminophen 650 mg Q6HP PRN PO 04/19/25 12:30 04/20/25 08:24 650 MG Morphine Sulfate 2 mg Q4HPRN PRN IV 04/19/25 13:30 Nitroglycerin 0.4 mg Q5MINP PRN SL 04/19/25 12:30 Morphine Sulfate 2 mg Q30M PRN IV 04/19/25 13:30 Pantoprazole Sodium 40 mg DAILY IV 04/19/25 12:45 04/23/25 09:42 40 MG Heparin Sodium/ Dextrose 250 ml @ 21 mls/hr [id number] IV 04/23/25 08:45 04/23/25 08:45 21 MLS/HR Laboratory Results Laboratory Tests 04/20/25 07:00 04/23/25 05:14 Coagulation Test 04/22/25 14:33 04/22/25 21:35 04/23/25 05:14 Prothrombin Time 11.2 sec (9.3-11.8) 11.1 sec (9.3-11.8) 11.3 sec (9.3-11.8) Prothrombin Time INR 1.06 (0.9-1.15) 1.05 (0.9-1.15) 1.07 (0.9-1.15) Activated Partial Thromboplast Time 47.4 SEC (24.5-34.5) H 57.4 SEC (24.5-34.5) H 47.1 SEC (24.5-34.5) H Labs and/or images reviewed: Labs reviewed by me, Image(s) reviewed by me Assessment/Plan Assessment/Plan Intraluminal thrombus in the lesser saphenous vein and peroneal vein heparin drip per protocol cardiology consult for Dr.M Kramer appreciated no indication for mechanical thrombectomy Chondrocalcinosis Mild tricompartmental knee joint osteoarthrosis History of mitral valve prolapse History of testosterone replacement therapy Small knee joint effusion at bedside PE ruled out Echocardiogram 70 % ejection fraction Plan discussed with: Patient Date of Service: Apr 23, 2025 Billing Provider: MARKO TRUJILLO MD Common Visit Codes: [id number] INP/OBS CARE(HIGH) MARKO TRUJILLO MD Apr 23, 2025 13:46
[2025-04-23 15:28] LABS: INR 1.14 (0.9-1.15); Prothrombin Time 11.9 sec (9.3-11.8)
[2025-04-23 15:49] LABS: Partial Thromboplastin Time 83.4 SEC (24.5-34.5)
--- NOTE | 2025-04-23 15:56 | CONS ---
Pharmacy Clinical Information: HEPARIN DRIP, DVT PROTOCOL @1455 APTT = 83.4 - NO BOLUS, DECREASE RATE BY 200 UNITS/HR NEXT APTT DRAW WILL BE @2200 PER RX PROTOCOL CONFIRMED AND READ BACK [facility] Apr 23, 2025 15:56
[2025-04-23 22:30] LABS: INR 1.09 (0.9-1.15); Partial Thromboplastin Time 68.8 SEC (24.5-34.5); Prothrombin Time 11.5 sec (9.3-11.8)
--- NOTE | 2025-04-23 23:18 | DVHPN2 ---
Progress Note - Dictate Date Seen: Apr 23, 2025 Medical Necessity Reason Pt with a Central, PICC or Fol: No Subjective Patient was seen and evaluated in follow up. No overnight events. Patient is stable on room air. Patient is complaining of generalized pain. CBC is WNL. Patient maintained on Heparin drip. Telemetry reviewed. vital signs Vital Sign Date Time Temp Pulse Resp B/P (MAP) Pulse Ox O2 Delivery O2 Flow Rate FiO2 04/23/25 21:00 98.3 79 20 123/69 (87) 92 98.3 04/23/25 08:00 Room Air* 0 21 Total Intake and Output 04/22/25 04/22/25 04/23/25 15:00 23:00 07:00 Intake Total 250 ml 1400 ml 240 ml Output Total 650 ml 200 ml Balance 250 ml 750 ml 40 ml medications Current Medications Medications Dose Ordered Sig/Scotty Route Start Time Stop Time Status Last Admin Dose Admin Acetaminophen/ Hydrocodone Bitart 1 tab Q4HP PRN PO 04/19/25 12:30 04/23/25 21:35 1 TAB Ondansetron HCl 4 mg Q4HP PRN IV 04/19/25 12:30 Acetaminophen 650 mg Q6HP PRN PO 04/19/25 12:30 04/20/25 08:24 650 MG Morphine Sulfate 2 mg Q4HPRN PRN IV 04/19/25 13:30 Nitroglycerin 0.4 mg Q5MINP PRN SL 04/19/25 12:30 Morphine Sulfate 2 mg Q30M PRN IV 04/19/25 13:30 Pantoprazole Sodium 40 mg DAILY IV 04/19/25 12:45 04/23/25 09:42 40 MG Heparin Sodium/ Dextrose 250 ml @ 19 mls/hr [id number] IV 04/23/25 16:00 04/23/25 16:00 19 MLS/HR objective GENERAL: Alert and oriented x 3. No acute distress. EYES: PERRL, EOMI. Anicteric. HENT: Moist mucous membranes. LUNGS: Clear to auscultation bilaterally. CARDIOVASCULAR: Regular rate and rhythm. ABDOMEN: Soft, nontender and nondistended. EXTREMITIES: No edema. NEUROLOGIC: No focal neurological deficits. SKIN: Warm, dry. laboratory and microbiology Laboratory Tests 04/23/25 05:14 04/20/25 07:00 Test 04/20/25 07:00 Range/Units Serum Glucose 107 H 74-106 mg/dL Problem List Intraluminal thrombus in lesser saphenous and peroneal veins. Rule out structural heart disease. History of mitral valve prolapse. Chondrocalcinosis. History of testosterone replacement therapy. Assessment/Plan Continued all current supportive medical care. Morphine and [place] for pain management. Heparin drip per protocol. Nitro SL. GI prophylactics. Additional plan as per the hospital course. Plan discussed with: Patient DANI BOSTON MD Apr 23, 2025 23:18
[2025-04-24 01:00] VITALS: BP 128/88; PULSE 76; RESP 20; TEMP 97.4; O2SAT 95
[2025-04-24 04:12] LABS: Hematocrit 47.1 % (41.0-53.0); Hemoglobin 16.0 g/dL (13.5-17.5); Mean Corpuscular Hemoglobin 29.6 pg (28.0-32.0); Mean Corpuscular Volume 87.1 fL (80.0-100.0); Nucleated Red Blood Cells % 0.1 %
[2025-04-24 04:32] LABS: INR 1.08 (0.9-1.15); Prothrombin Time 11.4 sec (9.3-11.8)
[2025-04-24 04:34] LABS: Partial Thromboplastin Time 84.0 SEC (24.5-34.5)
[2025-04-24 05:00] VITALS: BP 128/72; PULSE 74; RESP 19; TEMP 98; O2SAT 94
[2025-04-24] MEDS: HEPARIN DRIP/D5W 100UNITS/ML 250 ML IV SCH (06:10)
[2025-04-24 08:00] VITALS: PULSE 74; RESP 14; O2SAT 97
[2025-04-24 09:00] VITALS: BP 130/90; PULSE 76; RESP 18; TEMP 98.4; O2SAT 96
[2025-04-24] MEDS ORDERED: HYDR-4902 PO (11:11)
[2025-04-24] MEDS ORDERED: APIX5TAB PO (11:11)
--- NOTE | 2025-04-24 11:13 | DVHPN2 ---
Reviewed: Care Plan, H&P, Labs, Medications, Previous Orders, Radiology Changes from previous H/P or p: No Changes Musculoskeletal: leg pain Objective Vitals Vital Signs Date Time Temp Pulse Resp B/P (MAP) Pulse Ox O2 Delivery O2 Flow Rate FiO2 04/24/25 09:00 98.4 76 18 130/90 (103) 96 98.4 04/23/25 20:00 Room Air* 0 21 Intake/Output Intake and Output 04/24/25 07:00 Intake Total 2100 ml Output Total 1200 ml Balance 900 ml Intake Oral 2100 ml Output Urine Total 1200 ml # Voids 3 # Bowel Movements 1 Medications Current Medications Medications Dose Ordered Sig/Scotty Route Start Time Stop Time Status Last Admin Dose Admin Acetaminophen/ Hydrocodone Bitart 1 tab Q4HP PRN PO 04/19/25 12:30 04/23/25 21:35 1 TAB Ondansetron HCl 4 mg Q4HP PRN IV 04/19/25 12:30 Acetaminophen 650 mg Q6HP PRN PO 04/19/25 12:30 04/20/25 08:24 650 MG Morphine Sulfate 2 mg Q4HPRN PRN IV 04/19/25 13:30 Nitroglycerin 0.4 mg Q5MINP PRN SL 04/19/25 12:30 Morphine Sulfate 2 mg Q30M PRN IV 04/19/25 13:30 Pantoprazole Sodium 40 mg DAILY IV 04/19/25 12:45 04/24/25 09:54 40 MG Heparin Sodium/ Dextrose 250 ml @ 17 mls/hr [id number] IV 04/24/25 05:15 04/24/25 06:10 17 MLS/HR Laboratory Results Laboratory Tests 04/20/25 07:00 04/24/25 03:45 Coagulation Test 04/23/25 14:55 04/23/25 21:49 04/24/25 03:45 Prothrombin Time 11.9 sec (9.3-11.8) H 11.5 sec (9.3-11.8) 11.4 sec (9.3-11.8) Prothrombin Time INR 1.14 (0.9-1.15) 1.09 (0.9-1.15) 1.08 (0.9-1.15) Activated Partial Thromboplast Time 83.4 SEC (24.5-34.5) *H 68.8 SEC (24.5-34.5) H 84.0 SEC (24.5-34.5) *H Labs and/or images reviewed: Labs reviewed by me, Image(s) reviewed by me Assessment/Plan Assessment/Plan Intraluminal thrombus in the lesser saphenous vein and peroneal vein heparin drip per protocol cardiology consult for Dr.M Kramer appreciated no indication for mechanical thrombectomy Chondrocalcinosis Mild tricompartmental knee joint osteoarthrosis History of mitral valve prolapse History of testosterone replacement therapy Small knee joint effusion at bedside PE ruled out Echocardiogram 70 % ejection fraction Patient feels better ambulatory walking to the restroom and requesting to be discharged home today: at bed side. Plan discussed with: Patient Date of Service: Apr 24, 2025 Billing Provider: MARKO TRUJILLO MD Common Visit Codes: [id number] INP/OBS CARE(HIGH) MARKO TRUJILLO MD Apr 24, 2025 11:13
--- NOTE | 2025-04-24 11:18 | DVHDS2 ---
Discharge Summary Date of Admission Apr 19, 2025 at 12:28 Date of Discharge: Apr 24, 2025 Admitting Diagnosis Left leg pain Wounds: None Labs/Diagnostic Data: Laboratory Results Test 04/24/25 03:45 04/20/25 07:00 04/19/25 13:03 04/19/25 07:15 White Blood Count 7.4 10^3/uL (4.4-10.8) Red Blood Count 5.40 10^6/uL (4.5-5.90) Hemoglobin 16.0 g/dL (13.5-17.5) Hematocrit 47.1 % (41.0-53.0) Mean Corpuscular Volume 87.1 fL (80.0-100.0) Mean Corpuscular Hemoglobin 29.6 pg (28.0-32.0) Mean Corpuscular Hemoglobin Concent 34.0 g/dL (32.0-36.0) Red Cell Distribution Width 13.8 % (11.8-14.3) Platelet Count 271 10^3/uL (140-450) Mean Platelet Volume 7.4 fL (6.9-10.8) Neutrophils (%) (Auto) 52.5 % (37.0-80.0) Lymphocytes (%) (Auto) 32.4 % (10.0-50.0) Monocytes (%) (Auto) 8.6 % (0.0-12.0) Eosinophils (%) (Auto) 5.3 % (0.0-7.0) Basophils (%) (Auto) 1.2 % (0.0-2.0) Neutrophils # (Auto) 3.9 10 ^3/uL (1.6-8.6) Lymphocytes # (Auto) 2.4 10 ^3/uL (0.4-5.4) Monocytes # (Auto) 0.6 10 ^3/uL (0-1.3) Eosinophils # (Auto) 0.4 10 ^3/uL (0-0.8) Basophils # (Auto) 0.1 10 ^3/uL (0-0.2) Nucleated Red Blood Cells 0.1 % Prothrombin Time 11.4 sec (9.3-11.8) Prothrombin Time INR 1.08 (0.9-1.15) Activated Partial Thromboplast Time 84.0 SEC (24.5-34.5) Sodium Level 139 mmol/L (136-145) Potassium Level 4.1 mmol/L (3.5-5.1) Chloride Level 103 mmol/L (98-107) Carbon Dioxide Level 26 mmol/L (20-31) Anion Gap 10 (5-15) Blood Urea Nitrogen 10 mg/dL (9-23) Creatinine 0.96 mg/dL (0.700-1.30) Glomerular Filtration Rate Calc 97 mL/min (>90) BUN/Creatinine Ratio 10.4 (10.0-20.0) Serum Glucose 107 mg/dL (74-106) Calcium Level 9.3 mg/dL (8.7-10.4) Total Bilirubin 1.9 mg/dL (0.2-1.0) Aspartate Amino Transferase (AST) 20 U/L (13-40) Alanine Aminotransferase (ALT) 23 U/L (7-40) Alkaline Phosphatase 62 U/L (46-116) Total Protein 7.4 g/dL (5.7-8.2) Albumin 4.3 g/dL (3.2-4.8) Creatine Kinase 151 U/L (46-171) D-Dimer, Quantitative 0.29 mg/L FEU (0.0-0.49) Troponin I High Sensitivity 6 ng/L (</=54) Other Laboratory Tests 04/24/25 03:45 04/20/25 07:00 Brief Hx & Hospital Course: 49-year-old male with a history of mitral valve breaths testosterone replacement therapy came in complaining of pain in the left leg found to have DVT in the lesser saphenous vein and peroneal vein on the left side started on heparin drip per protocol seen by Cardiology Dr. Kramer. Advised not a candidate for mechanical thrombectomy. The patient felt better after three days of heparin drip is ambulating to the restroom and wants to be discharged home. Discharged home on Eliquis and [place] the at the bedside he will follow up with discharge clinic in one week has a has no insurance. P.o. strongly advised that he we will need Eliquis at least for three months PE ruled out Consults/Reason for consult Cardiology Dr. Kramer Operations or Procedures Venous ultrasound CT chest angiogram Condition at Discharge: Fair Final Diagnosis/Problems List Intraluminal thrombus in the lesser saphenous vein and peroneal vein heparin drip per protocol cardiology consult for Dr.M Kramer appreciated no indication for mechanical thrombectomy Chondrocalcinosis Mild tricompartmental knee joint osteoarthrosis History of mitral valve prolapse History of testosterone replacement therapy Small knee joint effusion Discharge Disposition: Home Discharge Instruct/Medications Diet: Regular Activity: Light activity Follow Up/Referral: Follow up with discharge clinic in one week Use medications as prescribed You might need Eliquis at least for three months for blood clots in the leg Medications: Eliquis [place] [facility] Scheduled Apixaban Base (Eliquis), 5 MG PO BID Apixaban Base (Eliquis), 10 MG PO BID Scheduled PRN Hydrocodone-Acetaminophen (Hydrocodone Bitartrate/AC 5-325 mg), 1 TAB PO QID PRN 39 (Time taken for discharge summary 39 minutes) Discharge Statement: "Patient was advised to return to the ER or call 911 if any headaches, dizziness, shortness of breath, chest pain, abdominal pain, bleeding, fevers, or worsening of medical condition. Patient was counseled about treatment plan, medications, possible side effects, patientverbalized understanding. All questions were answered to the best of my ability. This discharge took greater then 30 minutes in planning, reviewing documentation, counseling the patient, and discussing with other team members." ASSESSMENT ASSESSMENT Hospital Course Improved Assessment Intraluminal thrombus in the lesser saphenous vein and peroneal vein heparin drip per protocol cardiology consult for Dr.M Kramer appreciated no indication for mechanical thrombectomy Chondrocalcinosis Mild tricompartmental knee joint osteoarthrosis History of mitral valve prolapse History of testosterone replacement therapy Small knee joint effusion Date of Service: Apr 24, 2025 Billing Provider: MARKO TRUJILLO MD Common Visit Codes: [id number] DISCH DAY >30min MARKO TRUJILLO MD Apr 24, 2025 11:18
[2025-04-24 11:32] VITALS: BP 102/66; PULSE 75; RESP 15; TEMP 36.9; O2SAT 99
--- NOTE | 2025-04-25 02:58 | DVHPN2 ---
Progress Note - Dictate Date Seen: Apr 24, 2025 Medical Necessity Reason Pt with a Central, PICC or Fol: No Subjective Patient was seen and evaluated in follow-up. Patient has no new complaints at this time. Patient denies any cardiac symptoms. Patient is cardiac stable for discharge. Telemetry reviewed. vital signs Vital Sign Date Time Temp Pulse Resp B/P (MAP) Pulse Ox O2 Delivery O2 Flow Rate FiO2 04/24/25 11:32 36.9 75 15 99 04/24/25 09:00 130/90 (103) 04/24/25 08:00 Room Air* 0 21 Total Intake and Output 04/23/25 04/23/25 04/24/25 15:00 23:00 07:00 Intake Total 1500 ml 600 ml Output Total 1200 ml Balance 300 ml 600 ml objective GENERAL: Alert and oriented x 3. No acute distress. EYES: PERRL, EOMI. Anicteric. HENT: Moist mucous membranes. LUNGS: Clear to auscultation bilaterally. CARDIOVASCULAR: Regular rate and rhythm. ABDOMEN: Soft, nontender and nondistended. EXTREMITIES: No edema. NEUROLOGIC: No focal neurological deficits. SKIN: Warm, dry. laboratory and microbiology Laboratory Tests 04/24/25 03:45 04/20/25 07:00 Test 04/20/25 07:00 Range/Units Serum Glucose 107 H 74-106 mg/dL Problem List Intraluminal thrombus in lesser saphenous and peroneal veins. Rule out structural heart disease. History of mitral valve prolapse. Chondrocalcinosis. History of testosterone replacement therapy. Assessment/Plan Continued all current supportive medical care. Morphine for pain management. Heparin drip per protocol. Nitro SL. GI prophylactics. Additional plan as per the hospital course. Plan discussed with: Patient DANI BOSTON MD Apr 24, 2025 13:24
== END 2025-04-24 12:04 | disposition home or self-care (01) | DRG 301 ==
LOC: ER 06:20 → OVERFLOW 12:28 → TELE-WESTW 17:13
PROVIDERS: ADMIT Family Medicine; ATTEND Family Medicine
DX: I82.452 Acute embolism and thrombosis of left peroneal vein (principal); I82.812 Embolism and thrombosis of superficial veins of left lower extremity; M11.20 Other chondrocalcinosis, unspecified site; M17.12 Unilateral primary osteoarthritis, left knee; I34.1 Nonrheumatic mitral (valve) prolapse; M25.462 Effusion, left knee
CPT/HCPCS: 36415; 71045; 71275; 73562; 80048; 80053; 82550; 84484; 85025; 85379; 85610; 85730; 93306; 93971; 96365; 96375; 97163; 99291; G0378; J2405; J2470